=== PATIENT | male | born 1960 | race Caucasian/White ===

== ENCOUNTER 2019-09-29 16:58 | Emergency (ER) | payer BC ==
[2019-09-29 17:11] VITALS: BP 150/60; PULSE 52; TEMP 98.1; BMI 32.3
[2019-09-29] MEDS ORDERED: KETOROLAC TROMETHAMINE 60 MG/2 ML VIAL IM ONE (17:39)
[2019-09-29] MEDS ORDERED: METHOCARBAMOL 750 MG TABLET PO ONE (17:39)
[2019-09-29] MEDS ORDERED: METHOCARBAMOL 500 MG TABLET ONE (17:42)
[2019-09-29] MEDS ORDERED: KETOROLAC TROMETHAMINE 60 MG/2 ML VIAL ONE (17:42)
--- NOTE | 2019-09-29 17:55 | PDOC ---
History of Present Illness - General Chief Complaint: Pain Stated Complaint: PAIN Time Seen by Provider: 09/29/19 17:18 History Source: Patient Exam Limitations: No Limitations Past History - Past Medical History Allergies/Adverse Reactions: Allergies Allergy/AdvReac Type Severity Reaction Status Date / Time No Known Allergies Allergy Verified 09/29/19 17:05 Home Medications: Ambulatory Orders Methocarbamol [Robaxin -] 1,500 mg PO Q6H PRN #24 tablet 09/29/19 - Psycho Social/Smoking Cessation Hx Smoking History: Never smoked *Physical Exam - Vital Signs Last Vital Signs Temp Pulse Resp BP Pulse Ox 98.1 F 52 L 16 150/60 99 09/29/19 17:05 09/29/19 17:05 09/29/19 17:05 09/29/19 17:05 09/29/19 17:05 - Physical Exam General Appearance: No: Apparent Distress HEENT: positive: FELICITA Neck: positive: Other (+L upper traps tenderness/muscle tightness, slight pain with turning neck to left). negative: Rigid, Rigidity, Tender midline Respiratory/Chest: negative: Respiratory Distress Neurologic: positive: Alert, Normal Mood/Affect, Motor Strength 5/5 Medical Decision Making - Medical Decision Making 58 y/o M with hx of HTN, HLD, pre-DM presents with L sided neck stiffness x 5 days. Has tried Naprosyn, Motrin and Tylenol without much relief of pain. Denies fever, sob, cp, numbness/tingling/weakness of extremities, visual/gait changes. Denies trauma, heavy lifting Neck muscle strain Plan: Toradol, Robaxin 09/29/19 17:45 Discharge - Discharge Information Problems reviewed: Yes Clinical Impression/Diagnosis: Neck strain Qualifiers: Encounter type: initial encounter Qualified Code(s): S16.1XXA - Strain of muscle, fascia and tendon at neck level, initial encounter Condition: Stable Disposition: HOME - Admission No - Additional Discharge Information Prescriptions: Methocarbamol [Robaxin -] 1,500 mg PO Q6H PRN #24 tablet PRN Reason: Muscle Spasms Prescription Drug Monitoring Program (I-STOP) results: I-STOP not reviewed - Follow up/Referral Referrals: Edi Clark MD [Primary Care Provider] - - Patient Discharge Instructions Patient Printed Discharge Instructions: DI for Muscle Strain Additional Instructions: Thank you for choosing [facility]. It was a pleasure taking care of you. You may take Motrin 600 mg every 6 hours by mouth as needed for mild to moderate pain. Take Motrin with food. Use Robaxin as needed for muscle spasms. This medication can make you sleepy Heating pads/warm compresses/epsom salt soaks may also help. Return to the Emergency Department if your symptoms worsen or persist, you have fever, chest pain, weakness of extremities (arms and/or legs) or other concerning symptoms. - Post Discharge Activity
== END 2019-09-29 18:06 | disposition home or self-care (01) ==
LOC: JERFT 16:58
PROC: 3E0233Z Introduction of Anti-inflammatory into Muscle, Percutaneous Approach (ICD-10-PCS; principal; 2019-09-29)
DX: S16.1XXA Strain of muscle, fascia and tendon at neck level, initial encounter (principal); E78.5 Hyperlipidemia, unspecified; R73.03 Prediabetes; X58.XXXA Exposure to other specified factors, initial encounter; Y93.89 Activity, other specified; Y92.89 Other specified places as the place of occurrence of the external cause; Y99.8 Other external cause status
CPT/HCPCS: 99281-25

== ENCOUNTER 2019-10-09 03:25 | Emergency (ER) | payer BC ==
--- NOTE | 2019-10-09 03:58 | PDOC ---
History of Present Illness - General Stated Complaint: URINARY PROBLEM Time Seen by Provider: 10/09/19 03:44 History Source: Patient Exam Limitations: No Limitations - History of Present Illness Initial Comments: Pt is a 58 yo M, with PMH of HTN, HLD, NIDDM, and nephrolithiasis s/p ESWL (2017 ), not on AC, who is presenting with painless hematuria since yesterday. Pt states he noticed "pink urine" yesterday in the toilet with no associated urinary or abdominal pain. Pt denies drinking/eating any red foods. Pt came to ER because his saw the urine in the toilet and was scared. Pt endorses lower back pain on the left which he noticed when he woke up from sleep. Pt denies any fevers/chills, headache, vision changes, syncope, chest pain, palpitations, SOB, nausea/vomiting, abdominal pain, urinary symptoms, diarrhea/ constipation, or leg swelling. Allergies: NKDA Urology: Dr. Arora, [place] Social: Pt denies any cigarette, alcohol, or drug use. Pt denies any recent travel or sick contacts. Surgical: ESWL, see above Family: no relevant history. 10/09/19 04:20 10/09/19 04:23 Past History - Travel Traveled outside of the country in the last 30 days: No Close contact w/someone who was outside of country & ill: No - Past Medical History Allergies/Adverse Reactions: Allergies Allergy/AdvReac Type Severity Reaction Status Date / Time No Known Allergies Allergy Verified 10/09/19 04:22 Home Medications: Ambulatory Orders Methocarbamol [Robaxin -] 1,500 mg PO Q6H PRN #24 tablet 09/29/19 - Psycho Social/Smoking Cessation Hx Smoking History: Never smoked Review of Systems - Review of Systems Able to Perform ROS?: Yes Is the patient limited Indonesian proficient: No Constitutional: Yes: Weight Stable. No: Chills, Diaphoresis, Fever, Loss of Appetite, Malaise, Weakness HEENTM: No: Recent change in vision, Nose Congestion, Throat Pain, Throat Swelling, Difficulty Swallowing Respiratory: No: Cough, Orthopnea, Shortness of Breath Cardiac (ROS): No: Chest Pain, Edema, Irregular Heart Rate, Lightheadedness, Palpitations, Syncope, Chest Tightness ABD/GI: No: Constipated, Diarrhea, Nausea, Poor Appetite, Poor Fluid Intake, Vomiting, Abdominal cramping : Yes: See HPI, Hematuria. No: Burning, Dysuria, Discharge, Frequency, Flank Pain, Incontinence, Pain, Urgency, Testicular Pain Musculoskeletal: Yes: See HPI, Back Pain. No: Joint Pain, Muscle Pain, Muscle Weakness Integumentary: No: Rash Neurological: No: Headache, Numbness, Weakness, Dizziness Psychiatric: No: Sleep Pattern Change, Change in Appetite Endocrine: No: Increased Urine, Change in Weight Hematologic/Lymphatic: No: Anemia, Blood Clots, Easy Bleeding, Easy Bruising All Other Systems: Reviewed and Negative *Physical Exam - Vital Signs 10/09/19 04:25 Vital Signs Temp Pulse Resp BP Pulse Ox 98.2 F 57 L 18 142/70 97 10/09/19 03:25 10/09/19 03:25 10/09/19 03:25 10/09/19 03:25 10/09/19 03:25 - Physical Exam Comments: Vitals stable, pt afebrile. Pt in NAD, normal body habitus. Pt alert and oriented x3. green chain offbearer generally intact, muscular strength and sensation intact. No midline spinal tenderness, step-offs, or crepitus. Head normocephalic, atraumatic. Eyes PERRLA, EOMI. Oropharynx without erythema or exudates, no LAD b/l. No nasal congestion. Hearing intact. Clear heart sounds, S1/S2, no JVD, b/l pedal edema, or heart murmur. Clear lung sounds, no respiratory distress, wheezes, crackles, or accessory muscle use. No abdominal or CVA tenderness to palpation, no rebound, no guarding. Abdomen soft, non-distended, and with normoactive bowel sounds. Skin without jaundice or rash. Benign PE. 10/09/19 04:24 ED Treatment Course - LABORATORY CBC & Chemistry Diagram: 10/09/19 04:25 10/09/19 04:25 Medical Decision Making - Medical Decision Making Pt was seen at bedside, also will be seen by attending Dr. Dobbins. Pt presenting with painless hematuria with history of ESWL for nephrolithiasis. Will evaluate for renal function, anemia, UTI, and potential obstructed stone with spiral CT. Provided 1 L IV NS and ofirmev for improvement of discomfort and hydration. Will continue to reassess pt and monitor for symptomatic improvement. 10/09/19 04:25 CBC and CMP generally WNL UA sent to lab Pending CT read. 10/09/19 05:09 UA without infection. 10/09/19 05:49 CT: 9 mm stone R renal pelvis with mild hydro. BUN/Cr WNL, not infected stone. Pt can d/c to home with Urology f/u. Strict return precautions provided with pt understanding. 10/09/19 06:23 Discharge - Discharge Information Problems reviewed: Yes Clinical Impression/Diagnosis: Nephrolithiasis Hematuria Qualifiers: Hematuria type: unspecified type Qualified Code(s): R31.9 - Hematuria, unspecified Condition: Good Disposition: HOME - Admission No - Follow up/Referral Referrals: Edi Clark MD [Primary Care Provider] - Anatoliy Paz MD [Staff Physician] - - Patient Discharge Instructions Patient Printed Discharge Instructions: DI for Hematuria Additional Instructions: You were seen in the ER today for blood in your urine. The results of your labs and imaging today showed a right kidney stone. Please follow-up with your primary care doctor and urology within 1-2 days to discuss your visit and make sure your symptoms have improved. Please return to the ER if you have any worsening pain, development of fevers or chills, loss of consciousness, inability to tolerate food or fluids, or any other concerns. - Post Discharge Activity
[2019-10-09] MEDS ORDERED: SODIUM CHLORIDE 1,000 ML IV STA (04:08)
--- NOTE | 2019-10-09 04:09 | PDOC ---
Attending Attestation - Resident Resident Name: Cassi Reyes - ED Attending Attestation I have performed the following: I have examined & evaluated the patient, The case was reviewed & discussed with the resident, I agree w/resident's findings & plan - HPI HPI: 10/09/19 04:09 see resident hpi 10/09/19 04:12 - Physicial Exam PE: 10/09/19 04:12 agree with resident exam - Medical Decision Making 10/09/19 04:12 58-year-old male with hematuria and left flank discomfort, history of kidney stones CT scan abdomen and pelvis to rule out ureterolithiasis Likely DC home with outpatient follow-up if creatinine within normal limits
[2019-10-09] MEDS ORDERED: ACETAMINOPHEN 1000 MG/100 ML VIAL (NON FORMULARY) IVPB ONE (04:10)
[2019-10-09] MEDS ORDERED: ACETAMINOPHEN INJECTION 100 ML IVPB ONE (04:33)
[2019-10-09 04:36] LABS: BASO % 1.3 % (0-2.0); EOS % 2.1 % (0-4.5); HEMATOCRIT 44.9 % (35.4-49); HEMOGLOBIN 15.4 GM/dL (11.7-16.9); LYMPH % 22.8 % (8-40); MCH 29.4 pg (25.7-33.7); MCHC 34.4 g/dl (32.0-35.9); MEAN CELL VOLUME 85.4 fl (80-96); MEAN PLT VOLUME 9.2 fl (7.5-11.1); MONO % 9.9 % (3.8-10.2); NEUT % 63.9 % (42.8-82.8); PLATELET COUNT 210 K/MM3 (134-434); RBC 5.25 M/mm3 (4.00-5.60); RDW 13.7 % (11.9-15.9); WHITE BLOOD COUNT 7.1 K/mm3 (4.0-10.0)
[2019-10-09 05:04] LABS: ALBUMIN 4.2 g/dl (3.4-5.0); BILIRUBIN,TOTAL 0.5 mg/dL (0.2-1); BLOOD UREA NITROGEN 13.6 mg/dL (7-18); CALCIUM 9.5 mg/dL (8.5-10.1); CREATININE 0.9 mg/dL (0.55-1.3); POTASSIUM 3.8 mmol/L (3.5-5.1); TOT PROT 7.7 g/dl (6.4-8.2)
[2019-10-09 05:22] LABS: EPI CELLS 0.6 /HPF (0-5/HPF); HYALINE CASTS 0 /lpf (0-8); PH,URINE 5.5 (5.0-8.0); URINE APPEARANCE TURBID; URINE BACTERIA 0.3 /hpf (NEGATIVE); URINE BILIRUBIN NEGATIVE (NEGATIVE); URINE COLOR RED; URINE GLUCOSE (UA) NEGATIVE (NEGATIVE); URINE KETONE NEGATIVE (NEGATIVE); URINE LEUK ESTERASE 1+ (NEGATIVE); URINE NITRITE NEGATIVE (NEGATIVE); URINE PROTEIN 2+ (NEGATIVE); URINE RBC 4159 /hpf (0-4); URINE WBC 7 /hpf (0-5)
[2019-10-09 05:43] VITALS: BMI 32.3
[2019-10-09 06:54] VITALS: BP 142/73; PULSE 52; TEMP 98.1
== END 2019-10-09 06:30 | disposition home or self-care (01) ==
LOC: JER 03:25
PROC: 3E0337Z Introduction of Electrolytic and Water Balance Substance into Peripheral Vein, Percutaneous Approach (ICD-10-PCS; principal; 2019-10-09)
PROC: 3E033NZ Introduction of Analgesics, Hypnotics, Sedatives into Peripheral Vein, Percutaneous Approach (ICD-10-PCS; 2019-10-09)
DX: N13.2 Hydronephrosis with renal and ureteral calculous obstruction (principal); R31.9 Hematuria, unspecified; Z87.442 Personal history of urinary calculi; I10 Essential (primary) hypertension; Z79.84 Long term (current) use of oral hypoglycemic drugs; E78.5 Hyperlipidemia, unspecified
CPT/HCPCS: 36415; 74176-TC; 80053; 81003; 85025; 87086; 99283-25; J0131; J7030

== ENCOUNTER 2021-05-07 20:13 | Emergency (ER) | payer BC ==
[2021-05-07 20:27] VITALS: TEMP 98.7; BMI 32.3
[2021-05-07 21:31] VITALS: BP 136/74; PULSE 70
== END 2021-05-07 21:31 | disposition home or self-care (01) ==
LOC: JER 20:13
DX: B37.0 Candidal stomatitis (principal)
CPT/HCPCS: 99281-25

== ENCOUNTER 2024-02-06 11:12 | Emergency (ER) | payer BC ==
[2024-02-06 11:22] VITALS: BP 176/71; PULSE 65; RESP 18; TEMP 97.7; BMI 32.3
[2024-02-06] MEDS ORDERED: ACETAMINOPHEN 500 MG TABLET (FP) ONE (12:19)
[2024-02-06] MEDS ORDERED: KETOROLAC TROMETHAMINE 30 MG/1 ML VIAL ONE (12:19)
[2024-02-06] MEDS: KETOROLAC TROMETHAMINE 30 MG/1 ML VIAL IM ONE (12:24)
[2024-02-06] MEDS: ACETAMINOPHEN 500 MG TABLET (FP) PO ONE (12:24)
== END 2024-02-06 13:54 | disposition home or self-care (01) ==
LOC: JERFT 11:12
PROC: 3E0233Z Introduction of Anti-inflammatory into Muscle, Percutaneous Approach (ICD-10-PCS; principal; 2024-02-06)
DX: M25.572 Pain in left ankle and joints of left foot (principal)
CPT/HCPCS: 73610-TC-LT-FY; 73630-TC-LT; 99284-25

== ENCOUNTER 2024-05-15 19:35 | Emergency (ER) | payer BC ==
[2024-05-15 19:44] VITALS: BP 125/68; PULSE 59; RESP 16; TEMP 97.8; BMI 29.7
[2024-05-15 22:03] LABS: EPI CELLS 4 /uL (0-25.1); HYALINE CASTS 1 /uL (0-3.1); URINE APPEARANCE Error; URINE BACTERIA 4 /uL (0-1359); URINE BILIRUBIN NEGATIVE (NEGATIVE); URINE COLOR ORANGE; URINE GLUCOSE (UA) NEGATIVE (NEGATIVE); URINE KETONE TRACE (NEGATIVE); URINE LEUK ESTERASE 1+ (NEGATIVE); URINE NITRITE NEGATIVE (NEGATIVE); URINE PROTEIN 2+ (NEGATIVE); URINE RBC 2931 /uL (0-23.9); URINE WBC 95 /uL (0-25.8)
[2024-05-15] MEDS ORDERED: CIPROFLOXACIN 500 MG TABLET (RESTRICTED TO ID) PO ONE (23:24)
== END 2024-05-16 00:16 | disposition home or self-care (01) ==
LOC: JER 19:35
DX: N39.0 Urinary tract infection, site not specified (principal); N20.0 Calculus of kidney; N50.82 Scrotal pain; R31.9 Hematuria, unspecified
CPT/HCPCS: 74176-TC; 81003; 87086; 99284-25

== ENCOUNTER 2024-09-11 14:42 | Emergency (ER) | payer BC ==
[2024-09-11 14:54] VITALS: PULSE 56; TEMP 97.6; BMI 29.9
[2024-09-11 15:50] VITALS: BP 157/81; RESP 18
[2024-09-11] MEDS ORDERED: ACETAMINOPHEN 325 MG TABLET (FP) ONE (16:13)
[2024-09-11] MEDS: ACETAMINOPHEN 500 MG TABLET (FP) PO ONE (16:26)
== END 2024-09-11 16:53 | disposition home or self-care (01) ==
LOC: JER 14:42
DX: R31.9 Hematuria, unspecified (principal); N99.820 Postprocedural hemorrhage of a genitourinary system organ or structure following a genitourinary system procedure; R10.2 Pelvic and perineal pain
CPT/HCPCS: 99283-25

== ENCOUNTER 2025-04-25 17:23 | Emergency (ER) | payer OTHER ==
[2025-04-25 17:38] VITALS: BP 152/79; PULSE 61; RESP 19; TEMP 98.1; BMI 30.2
[2025-04-25] MEDS ORDERED: KETOROLAC TROMETHAMINE 30 MG/1 ML VIAL ONE (18:40)
[2025-04-25] MEDS ORDERED: METHOCARBAMOL 500 MG TABLET ONE (18:40)
[2025-04-25] MEDS: METHOCARBAMOL 500 MG TABLET PO ONE (18:47)
[2025-04-25] MEDS: KETOROLAC TROMETHAMINE 30 MG/1 ML VIAL IM ONE (18:48)
== END 2025-04-25 19:12 | disposition home or self-care (01) ==
LOC: JERFT 17:23
PROC: 3E0233Z Introduction of Anti-inflammatory into Muscle, Percutaneous Approach (ICD-10-PCS; principal; 2025-04-25)
DX: S46.812A Strain of other muscles, fascia and tendons at shoulder and upper arm level, left arm, initial encounter (principal); S16.1XXA Strain of muscle, fascia and tendon at neck level, initial encounter; X58.XXXA Exposure to other specified factors, initial encounter
CPT/HCPCS: 73030-TC-RT-FY; 99284-25